=== PATIENT | male | born 1940 | race Two or more races ===

== ENCOUNTER 2020-03-08 10:34 | Inpatient (IN) | payer MEDICARE, OTHER ==
[~2020-03-08] VITALS: Ht 175.3 cm; Wt 84.5 kg
[2020-03-08] MEDS ORDERED: SODIUM CHLORIDE 0.9% 1,000 ML IVB ONE (11:15)
[2020-03-08 11:39] LABS: Basophils # (auto) 0.1 10 ^3/uL (0-0.2); Basophils % (auto) 0.4 % (0.0-2.0); Eosinophils # (auto) 0.1 10 ^3/uL (0-0.8); Eosinophils % (auto) 0.8 % (0.0-7.0); Hematocrit 42.6 % (41.0-53.0); Hemoglobin 13.9 g/dL (13.5-17.5); Lymphocytes # (auto) 1.6 10 ^3/uL (0.4-5.4); Lymphocytes % (auto) 11.4 % (10.0-50.0); Mean Corpuscular Hemoglobin 22.8 pg (28.0-32.0); Mean Corpuscular Hgb Conc. 32.6 g/dL (32.0-36.0); Mean Corpuscular Volume 69.9 fL (80.0-100.0); Monocytes # (auto) 0.7 10 ^3/uL (0-1.3); Monocytes % (auto) 4.8 % (0.0-12.0); Neutrophils # (auto) 11.5 10 ^3/uL (1.6-8.6); Neutrophils % (auto) 82.6 % (37.0-80.0); Nucleated Red Blood Cells % 0.2 %; Platelet Count (auto) 271 10^3/uL (140-450); Red Cell Distribution Width 16.7 % (11.8-14.3)
[2020-03-08 11:58] LABS: INR 1.02 (0.9-1.15); Partial Thromboplastin Time 24.8 sec (23.0-31.2)
[2020-03-08] MEDS ORDERED: MORPHINE SULF INJ 2 MG/ML SYRINGE 1ML IV ONE (12:00)
[2020-03-08] MEDS ORDERED: ONDANSETRON HCL 4 MG/2 ML VIAL IV ONE (12:00)
[2020-03-08] MEDS: HYDROmorphone HCL 2 MG/ML VL IV PRN ×3 (12:15→22:06)
[2020-03-08] MEDS ORDERED: NITROGLYCERIN 0.4 MG SL TAB SL PRN ×2 (12:45→13:00)
[2020-03-08] MEDS ORDERED: MORPHINE SULF INJ 2 MG/ML SYRINGE 1ML IV PRN ×2 (12:45→13:00)
[2020-03-08] MEDS: SODIUM CHLORIDE 0.9% 1,000 ML IV SCH (12:45)
[2020-03-08] MEDS ORDERED: ceFAZolin 1GM/50ML 50 ML IV ONE (12:45)
[2020-03-08 12:53] LABS: Albumin 4.2 g/dL (3.4-5.0); Anion Gap 5 (5-15); BUN/Creatinine Ratio 18.3; Blood Urea Nitrogen 28 mg/dL (7-18); Calcium 9.8 mg/dL (8.5-10.1); Carbon Dioxide 26 mmol/L (21-32); Chloride 107 mmol/L (98-107); GFR African American 57 mL/min; GFR Non-African American 47 mL/min; Glucose 128 mg/dL (74-106); Magnesium 2.4 mg/dL (1.6-2.6); Potassium 4.2 mmol/L (3.5-5.1); Sodium 138 mmol/L (136-145)
[2020-03-08 12:58] LABS: Alanine Aminotransferase 33 U/L (16-61); Alkaline Phosphatase 175 U/L (45-117); Aspartate Aminotransferase 22 U/L (15-37); Bilirubin, Total 0.6 mg/dL (0.2-1.0); Total Protein 8.6 g/dL (6.4-8.2)
[2020-03-08] MEDS ORDERED: DOCUSATE SOD 100 MG CAP PO PRN (13:00)
[2020-03-08] MEDS ORDERED: LORazepam 0.5 MG TAB PO PRN (13:00)
[2020-03-08] MEDS ORDERED: ALUM & MAG HYDROX-SIMETH LIQ(MAALOX) 30 ML PO PRN (13:00)
[2020-03-08] MEDS ORDERED: ACETAMINOPHEN 325 MG TAB PO PRN (13:00)
[2020-03-08] MEDS ORDERED: ONDANSETRON HCL 4 MG/2 ML VIAL IV PRN (13:00)
[2020-03-08 13:28] LABS: Cholesterol 128 mg/dL (< 200)
[2020-03-08] MEDS ORDERED: LACTULOSE 20Gm/30ML SOLN PO PRN (13:30)
[2020-03-08 13:31] LABS: HDL Cholesterol 42 mg/dL (40-59); LDL Cholesterol 75 mg/dL (< 100); Triglycerides 190 mg/dL (< 150)
[2020-03-08] MEDS: ceFAZolin 1GM/50ML 50 ML IV SCH ×2 (14:00→21:47)
[2020-03-08] MEDS ORDERED: hydrALAZINE HCL 25 MG TAB PO PRN (14:45)
[2020-03-08] MEDS ORDERED: METOPROLOL SUCCINATE XL 50 MG TAB PO ONE (14:45)
[2020-03-08] MEDS ORDERED: LOSA-69 PO (15:15)
[2020-03-08] MEDS ORDERED: DILT-14 PO (15:15)
[2020-03-08] MEDS ORDERED: CHOL500021 PO (15:15)
[2020-03-08] MEDS ORDERED: TAMS1CAP25 PO (15:15)
[2020-03-08] MEDS ORDERED: FINA5TAB4 PO (15:15)
[2020-03-08] MEDS ORDERED: MET25T PO (15:15)
[2020-03-08] MEDS ORDERED: APIX5TAB PO (15:15)
[2020-03-08] MEDS ORDERED: B-CO1TAB8 PO (15:15)
--- NOTE | 2020-03-08 15:58 | NUR ---
Opening Shift Note Assumed care of patient, awake, alert and oriented X4. No S/S of distress/SOB, complains of left arm pain, 6/10, informed will medicate with prescribed medication when available. Upper and lower lips with abrasions from fall, pictures taken, open to air. Tele# 40, A-Fib @ 86 bpm. IV to right antecubital, 20 gauge, patent and infusing 0.9% NS @ 75 ml/hr. Left arm in sling, circulation WNL. Instructed on POC and to call for assist PRN, verbalized understanding. Bed locked, in lowest position, call light within reach, will continue to monitor for changes Q1hr and PRN.
--- NOTE | 2020-03-08 16:30 | NUR ---
WOUND PhOTOS Wound photos taken of facial abrasions
[2020-03-08 17:02] VITALS: BP 144/71
[2020-03-08] MEDS: CALCIUM W/VIT D (600MG/400IU) TAB PO SCH (17:43)
[2020-03-08] MEDS: TAMSULOSIN HYDROCHLORIDE 0.4 MG CAP PO SCH (17:43)
--- NOTE | 2020-03-08 19:10 | NUR ---
Care endorsed to LYNETTE Mas, night nurse.
--- NOTE | 2020-03-08 19:30 | NUR ---
Opening Shift Note Assumed care of patient, awake and alert. A&Ox4. Patient sitting up in bed. No S/S of distress/SOB or pain. Patient's left arm in is a sling. Patient also has a lip abrasion. Safety measures maintained by keeping the bed locked in lowest position, 2 side rails up, personal items and call light within reach. Bed alarm in place. Instructed on POC and to call for assist PRN, will continue to monitor for changes Q1hr and PRN.
--- NOTE | 2020-03-08 19:35 | NUR ---
Urine sample sent down to lab.
[2020-03-08 20:15] LABS: Urine Bacteria NONE SEEN /hpf (None Seen); Urine Blood Negative /uL (Negative); Urine WBC 1 /hpf (0 - 3)
[2020-03-08 20:35] LABS: Alcohol, Urine < 3.0 mg/dL (0-10); Amphetamine Screen, Urine NEGATIVE (NEGATIVE); Barbiturate Scree,Urine NEGATIVE (NEGATIVE); Benzodiazephine Screen, Urine NEGATIVE (NEGATIVE); Cannabinoid Screen, Urine NEGATIVE (NEGATIVE); Cocaine Screen, Urine NEGATIVE (NEGATIVE); Opiate Scree,Urine POSITIVE (NEGATIVE); Phencyclidine Screen, Urine NEGATIVE (NEGATIVE)
[2020-03-08] MEDS: ATORVASTATIN 20 MG TAB PO SCH (21:48)
[2020-03-08 22:00] VITALS: BP 115/64
[2020-03-09] MEDS: SODIUM CHLORIDE 0.9% 1,000 ML IV SCH ×2 (02:05→08:10)
[2020-03-09 05:00] VITALS: BP 102/58
[2020-03-09] MEDS: ceFAZolin 1GM/50ML 50 ML IV SCH ×3 (05:49→21:49)
[2020-03-09] MEDS: CALCIUM W/VIT D (600MG/400IU) TAB PO SCH ×2 (08:06→17:49)
--- NOTE | 2020-03-09 08:20 | NUR ---
Opening Shift Note Received report from cdl b driver nurse, assumed care of patient, awake and alert. No S/S of distress/SOB or pain. Instructed on POC and to call for assist PRN, will continue to monitor for changes Q1hr and PRN.
[2020-03-09 09:00] VITALS: BP 122/67
[2020-03-09] MEDS: FINASTERIDE 5 MG TAB PO SCH (09:39)
[2020-03-09] MEDS: dilTIAZem 120MG ER CAP PO SCH (09:39)
[2020-03-09] MEDS: METOPROLOL SUCCINATE XL 50 MG TAB PO SCH (09:40)
[2020-03-09] MEDS: LOSARTAN POTASSIUM 25 MG TAB PO SCH (09:40)
--- NOTE | 2020-03-09 09:40 | NUR ---
INHOUSE COVID COVID INHOUSE SWAB COLLECTED AND SENT TO LAB.
[2020-03-09] MEDS ORDERED: ENOXAPARIN SOD 40 MG/0.4 ML SYRINGE SC SCH (10:00)
--- NOTE | 2020-03-09 10:26 | NUR ---
WOUND CARE NOTE: Wound care in to see patient per wound care request regarding "facial abrasions". Bedside nurse took photograph of patient's skin issue upon admission for reference. Patient is 79 years old male with admitting diagnosis of Supracondylar Fracture of the Humerus. Patient is resting in bed in Rm. 218A. Patient is awake, alert and oriented. He's in no stated pain at this time and he appears to be in pain using Lawson Flores Faces Pain Scale. He's able to assist in turning and repositioning. His Bowen score is 16. Noted patient's upper and lower lip has scabbed abrasion, intact ecchymosis to L cheek and Rt upper arm. His L arm on splint and arm sling. On reports, patient had a fall at home while watering the plan on his backyard. No other wound or pressure injury noted. Repositioned patient for comfort facing his Rt. side with the assistance of nurse's aide at bedside. Patient tolerated well. Bed in low position, call ball within reach, bed alarm on. Patient has an active orthopedic consult. RECOMMENDATION: Frequent turning and repositioning schedule as condition permits, redistribute pressure points with pillows, continue monitoring by wound care while patient's Bowen score is <18. Addendum: 03/09/20 at 1349 by Zari Watkins RN Amended: Links added.
--- NOTE | 2020-03-09 12:07 | NUR ---
Nutrition Consult/assessment Note please see attached link for complete assessment Est energy needs BW 81 [id number] kcal (23-25 kcal/kg BW) Est protein needs: 81-89g (1-1.1g/kg BW) Will monitor and reassess prn. Addendum: 03/09/20 at [address] Amended: Links added.
[2020-03-09 13:00] VITALS: BP 136/67
[2020-03-09] MEDS: HYDROcodone-ACET 5/325MG TAB PO PRN (13:55)
[2020-03-09 17:00] VITALS: BP 133/71
[2020-03-09] MEDS: TAMSULOSIN HYDROCHLORIDE 0.4 MG CAP PO SCH (17:49)
--- NOTE | 2020-03-09 18:59 | NUR ---
Care endorsed to LYNETTE Cohen, night nurse.
--- NOTE | 2020-03-09 19:30 | NUR ---
Opening Shift Note Assumed care of patient, awake and alert. A&Ox4. No S/S of distress/SOB or pain. Patient's left upper extremity is in a sling. Safety measures maintained by keeping the bed locked in lowest position, 2 side rails up, personal items and call light within reach. Instructed on POC and to call for assist PRN, will continue to monitor for changes Q1hr and PRN.
[2020-03-09] MEDS: ATORVASTATIN 20 MG TAB PO SCH (21:48)
[2020-03-09 22:00] VITALS: BP 110/60
[2020-03-10] MEDS: HYDROcodone-ACET 5/325MG TAB PO PRN ×2 (00:27→09:20)
[2020-03-10 04:49] VITALS: BP 92/53
[2020-03-10] MEDS: SODIUM CHLORIDE 0.9% 1,000 ML IV SCH (05:31)
[2020-03-10] MEDS: ceFAZolin 1GM/50ML 50 ML IV SCH ×2 (06:02→14:00)
--- NOTE | 2020-03-10 07:30 | NUR ---
Opening Shift Note Assumed care of patient, patient laying quietly in bed with eyes closed. Patient is on room air with even and unlabored respirations noted. equal chest rise and fall present. No S/S of distress/SOB or pain. Bed is in lowest locked position, side rails up x2, call light with in reach. Will continue to monitor for changes Q1hr and PRN.
[2020-03-10 09:00] VITALS: BP 109/77
[2020-03-10] MEDS: dilTIAZem 120MG ER CAP PO SCH (09:21)
[2020-03-10] MEDS: CALCIUM W/VIT D (600MG/400IU) TAB PO SCH (09:21)
[2020-03-10] MEDS: FINASTERIDE 5 MG TAB PO SCH (09:22)
[2020-03-10] MEDS: LOSARTAN POTASSIUM 25 MG TAB PO SCH (09:23)
[2020-03-10] MEDS: METOPROLOL SUCCINATE XL 50 MG TAB PO SCH (09:23)
--- NOTE | 2020-03-10 09:55 | NUR ---
DR. REECE AT BEDSIDE REVALUATING PATIENT. NEW ORDER RECEIVED FOR D/C PENDING W/C DELIVERY. WILL CARRY OUT ORDERS AND SHERYL SOCIAL SERVICE AT STATION AND INFORMED OF ORDER. PER SHERYL WILL WORK ON ORDER. WILL CONTINUE TO MONITOR Q1H AND PRN.
[2020-03-10 10:18] VITALS: BP 109/77
--- NOTE | 2020-03-10 10:30 | NUR ---
PT UP TO CHAIR PER PT REQUEST, PT UP TO CHAIR. PT NOTED TO BE INCONTINENT. PATIENT CLEANED UP AND NEW DRY UNDERWEAR PLACED. FULL LINEN CHANGED COMPLETED. PT REQUIRING MOD ASSIST UP TO CHAIR. PATIENT TOLERATED WELL. INFORMED PATIENT TO NOT GET UP WITHOUT ASSISTANCE. PATIENT VERBALIZED UNDERSTANDING. FALL PREVENTION MEASURES IN PLACE. CALL LIGHT WITHIN REACH AND BEDSIDE TABLE IN FRONT OF PATIENT. WILL CONTINUE TO MONITOR Q1H AND PRN.
[2020-03-10 13:00] VITALS: BP 105/57
--- NOTE | 2020-03-10 14:00 | NUR ---
SPOKE WITH SHERYL, SOCIAL SERVICE SPOKE WITH SHERYL, SOCIAL SERVICE, RE: W/C. PER SHERYL, AWAITING TO HERE BACK REGARDING AN ETA. PATIENT UPDATED. WILL CONTINUE TO MONITOR Q1H AND PRN.
--- NOTE | 2020-03-10 15:00 | NUR ---
D/C Planning Per social service consult for a wheelchair. Faxed clinical information to [facility]. Per Cherry with [facility] patient wheelchair will be deliver to bedside at 4pm. Bedside nurse will be informed.
--- NOTE | 2020-03-10 15:31 | NUR ---
RECEIVED UPDATE FROM SHERYL PER SHERYL, W/C FOR PATIENT WILL BE HERE AROUND 1600. PATIENT INFORMED. PT CALLED TO COME BRING HIM CLOTHES AND PICK HI MUP AROUND THEN. WILL AWAIT W/C. WILL CONTINUE TO MONITOR Q1H AND PRN.
--- NOTE | 2020-03-10 16:30 | NUR ---
PATIENT DISCHARGE Discharge instructions given as ordered. Encourage to follow up with PMD as instructed. All questions and concerns addressed. Patient verbalized understanding. Medication reconciliation form completed and copy given to patient. Wheelchair arrived at bedside. IV removed with catheter intact, pressure dressing applied, patient tolerated well. Telemetry unit returned to ICU. Patient taken to vehicle via wheelchair with all personal belongings, including wheelchair, pt accompanied by staff member. No distress noted at time of departure.
[2020-03-10 16:48] VITALS: BP 118/64
== END 2020-03-10 16:30 | disposition home or self-care (01) | DRG 563 ==
LOC: EDBD 10:34 → ER 10:34 → TELE 10:35 → TELE-CENTR 14:47
PROVIDERS: ADMIT Hospitalist; ATTEND Family Medicine
PROC: 2W3BX1Z Immobilization of Left Upper Arm using Splint (ICD-10-PCS; principal; 2020-03-08)
DX: S42.332A Displaced oblique fracture of shaft of humerus, left arm, initial encounter for closed fracture (principal); C95.10 Chronic leukemia of unspecified cell type not having achieved remission; D68.4 Acquired coagulation factor deficiency; I48.19 Other persistent atrial fibrillation; I69.351 Hemiplegia and hemiparesis following cerebral infarction affecting right dominant side; N17.9 Acute kidney failure, unspecified; W01.0XXA Fall on same level from slipping, tripping and stumbling without subsequent striking against object, initial encounter; N18.9 Chronic kidney disease, unspecified; E78.00 Pure hypercholesterolemia, unspecified; I12.9 Hypertensive chronic kidney disease with stage 1 through stage 4 chronic kidney disease, or unspecified chronic kidney disease; N40.0 Benign prostatic hyperplasia without lower urinary tract symptoms; Z20.828 Contact with and (suspected) exposure to other viral communicable diseases; Z96.643 Presence of artificial hip joint, bilateral; Y92.096 Garden or yard of other non-institutional residence as the place of occurrence of the external cause; M25.551 Pain in right hip; Z96.641 Presence of right artificial hip joint; Y93.H2 Activity, gardening and landscaping; Z79.01 Long term (current) use of anticoagulants; Z82.49 Family history of ischemic heart disease and other diseases of the circulatory system; Z85.528 Personal history of other malignant neoplasm of kidney; Z91.81 History of falling; Z83.3 Family history of diabetes mellitus; Z90.49 Acquired absence of other specified parts of digestive tract; Z90.81 Acquired absence of spleen; Z90.5 Acquired absence of kidney; Y99.8 Other external cause status
CPT/HCPCS: 36415; 70450; 71045; 72125; 72192; 73060; 80053; 80061; 80307; 81001; 83036; 83735; 84484; 85025; 85610; 85730; 87040; 87086; 93005; 93306; 96361; 96365; 96375; G0378; J0690; J2405